=== PATIENT | male | born 1965 | race Two or more races ===

== ENCOUNTER 2018-12-20 13:50 | Outpatient (CLI) | payer BC | END 2018-12-20 23:59 | disposition home or self-care (01) | LOC: WOU 13:50 | PROVIDERS: ATTEND Specialist | DX: Z01.818 Encounter for other preprocedural examination (principal); H91.21 Sudden idiopathic hearing loss, right ear; Z87.891 Personal history of nicotine dependence | CPT/HCPCS: 71046; G0463 ==